=== PATIENT | female | born 1935 | race Caucasian/White ===

== ENCOUNTER 2021-03-04 08:14 | Inpatient (IN) | payer OTHER ==
[~2021-03-04] VITALS: Ht 165.1 cm; Wt 64.0 kg
--- NOTE | ~2021-03-04 | EMS ---
[place] [address] EMS Patient Care Report Name: KEN SANCHEZ Room #: PRE M.RMelinda#: [id number] Admission: Attend Phys: Discharge: Date of : 36 Report #: [id number] THIS REPORT FOR: //name// Report Transmitted: 03/04/2021 08:05 EMS Care Summary [place], [place]/[facility] Incident [id number] @ 03/04/2021 07:39 Incident Location [address] [place] [address] Patient KEN SANCHEZ Female, 85 Years 1935 Patient Address [address] [place] [address] Patient History Hypertension (HTN),Insomnia, Patient Allergies No known allergies, Chief Complaint fall/weakness Disposition Transported No Lights/[place] Dispatch Reason Falls Transported To [facility] Narrative daughter arrived this AM to find her mother on the bathroom floor. she last saw her mother yesterday @noon. she states pt is more confused than normal today. believed to be no LOC. pt urine soaked so think she may have been on floor overnight. pt denies inj from fall. she [place] [address] EMS Patient Care Report Name: KEN SANCHEZ Room #: PRE Wayne.#: [id number] Admission: Attend Phys: Discharge: Date of : 36 Report #: [id number] increasing weakness in lower ext. she agrees to eval at [facility]. pt helped to standing position and to stairchair. pt to cot, VS, transport w/ change. pt talkative enroute, able to carry on conversation about relatively current events. Initial Vitals @08:02P: 81,R: 20,BP: 151/71,Pain: 0/10,GCS: 14,Glucose: 100,SpO2: 91,Revised Trauma: 12, Assessments @07:50MENTAL:Confused,SKIN:No Abnormalities,HEENT:Head/Face: No Abnormalities,LUNG SOUNDS:ABDOMEN:PELVIS//GI:EXTREMITIES:Right Leg: Other,Left Leg: Other,PULSE:NEURO:Other, Impression Injury Procedures @07:50ALS AssessmentResponse: Unchanged@07:59StretcherResponse: Unchanged@07:55StairchairResponse: Unchanged@08:00Oxygen FlowRate: 4 Device: Nasal Cannula (NC) Response: Improved Timeline 07:37,Call Received 07:37,Dispatch Notified 07:39,Dispatched 07:41,En Route 07:46,On Scene 07:50,At Patient 07:50,ALS Assessment,Response: Unchanged 07:55,Stairchair,Response: Unchanged 07:59,Stretcher,Response: Unchanged 08:00,Oxygen FlowRate: 4 Device: Nasal Cannula (NC) Response: Improved 08:02,BP: 151/71 M,PULSE: 81,RR: 20 R,SPO2: 91 Ox,ETCO2: ,B,PAIN: 0,GCS: 14, 08:06,Depart Scene 08:11,At Destination 08:33,Call Closed Disclaimer v1.1 Copyright 2020 [employer] This EMS Care Summary contains data elements from the applicable legal record (which may be displayed differently). It is designed to provide pertinent information for the following purposes: continuity of care, clinical quality, and state data reporting. The complete legal record is available to ED staff and administrators of the receiving hospital in [employer] Patient Tracker. All data [address] [address] EMS Patient Care Report Name: KEN SANCHEZ Room #: PRE M.R.#: [id number] Admission: Attend Phys: Discharge: Date of : 36 Report #: [id number] is provided "as is."
[2021-03-04 08:15] VITALS: BP 166/89
[2021-03-04 08:53] LABS: URINE BILIRUBIN NEGATIVE (Negative); URINE BLOOD 1+ (Negative); URINE CLARITY CLEAR; URINE COLOR YELLOW; URINE GLUCOSE-RANDOM* NEGATIVE (Negative); URINE KETONES TRACE (Negative); URINE LEUKOCYTES-REFLEX NEGATIVE (Negative); URINE NITRITE-REFLEX NEGATIVE (Negative); URINE PROTEIN (DIPSTICK) 1+ (Negative); URINE SPECIFIC GRAVITY >= 1.030 (1.005-1.035); URINE UROBILINOGEN 0.2 E.U./dl (0.2-1.0)
[2021-03-04 09:05] LABS: SQUAMOUS >10 Many /LPF (0-3)
[2021-03-04 09:06] LABS: AMORPHOUS URATES Few /LPF (None Seen); BACTERIA-REFLEX 1-9 Few /HPF (None Seen); CASTS None Seen /LPF (None Seen); URINE RBC 1-2 Rare /HPF (NONE SEEN); URINE WBC-REFLEX 0-5 Rare /HPF (0-5)
[2021-03-04 09:53] LABS: ABSOLUTE NEUTROPHILS 8.7 thou/uL (1.4-8.2); BASOPHILS 0.3 % (0.0-2.0); EOSINOPHILS 0.4 % (0.0-3.0); HEMOGLOBIN 16.5 gm/dL (12.0-15.0); LYMPHOCYTES 6.2 % (24.0-44.0); MCH 31.5 pg (26.0-34.0); MCHC 34.4 g/dL (28.0-37.0); MCV 91.5 fL (80.0-100.0); MONOCYTES 6.3 % (1.0-8.0); PLATELET COUNT 191 thou/uL (150-400); POLYS 86.8 % (36.0-66.0); RBC 5.25 mil/uL (4.20-5.00); RDW 13.4 % (10.5-14.5)
--- NOTE | 2021-03-04 09:59 | EKG ---
[address] [place] [address] ELECTROCARDIOGRAM REPORT Name: KEN SANCHEZ Room #: PRE [facility]#: [id number] Admission: Attend Phys: Discharge: Date of : 37 Report #: [id number] [facility] ED Test Date: 2021-03-04 Test Time: 08:25:01 Pat Name: KEN SANCHEZ Department: Room: Gender: F Business Solutions Architect: MURPHY : 1935 Requested By: Bong Sage Order Number: [id number] MD: Maksim Menjivar Measurements Intervals [place] Rate: 77 P: MN: QRS: 49 QRSD: 80 T: 173 QT: 401 QTc: 454 Interpretive Statements NSR, artifact Nonspecific repol abnormality, diffuse leads Artifact in lead(s) I,aVR,aVL,aVF,V1,V2 and baseline wander in lead(s) V1,V2 No previous ECG available for comparison Electronically Signed On 03-04-2021 9:59:28 CDT by Maksim Menjivar [email or web address] <ELECTRONICALLY SIGNED> By: Maksim Menjivar MD, [facility] 03/04/21 0959 4 4 Maksim Menjivar MD, FAC /EPI
[2021-03-04] MEDS ORDERED: TEMAZEPAM30 MG PO (10:00)
[2021-03-04] MEDS ORDERED: LIPITOR40 MG PO (10:01)
[2021-03-04] MEDS ORDERED: KLOR-CON M2020 MEQ PO (10:01)
[2021-03-04] MEDS ORDERED: COZAAR 25 MG TA25 M2 PO (10:01)
[2021-03-04] MEDS ORDERED: HYDROCHLOROTH12.5 M2 PO (10:01)
[2021-03-04] MEDS ORDERED: SERTRALINE HCL100 MG PO (10:01)
[2021-03-04 10:02] LABS: CALCIUM 9.2 mg/dL (8.5-10.1); POTASSIUM 3.8 mmol/L (3.5-5.1)
[2021-03-04 10:23] LABS: ALBUMIN 3.7 g/dL (3.4-5.0); TROPONIN-I 0.11 ng/mL (<0.06)
[2021-03-04 12:57] LABS: FOLIC ACID 15.1 ng/mL (8.6-58.9)
[2021-03-04 15:01] VITALS: BP 127/40
[2021-03-04 15:07] VITALS: BP 110/43
[2021-03-04 15:38] VITALS: BP 119/51
--- NOTE | 2021-03-04 16:09 | NUR ---
Pt expressed desire to have daughter and son as decision makers if she becomes incompetent, and wishes to be a DNR during her stay. Daughter at bedside affirms these have been her wishes and she agrees. Will page hospitalist.
[2021-03-04 20:42] VITALS: BP 113/57
[2021-03-04 23:22] VITALS: BP 144/49
[2021-03-05 04:38] LABS: BASOPHILS 0.3 % (0.0-2.0); EOSINOPHILS 1.7 % (0.0-3.0); LYMPHOCYTES 15.2 % (24.0-44.0); MCH 31.1 pg (26.0-34.0); MCHC 33.5 g/dL (28.0-37.0); MCV 92.8 fL (80.0-100.0); MONOCYTES 9.9 % (1.0-8.0); PLATELET COUNT 162 thou/uL (150-400); POLYS 72.9 % (36.0-66.0); RBC 4.31 mil/uL (4.20-5.00); RDW 13.8 % (10.5-14.5); WBC 6.8 thou/uL (4.0-11.0)
[2021-03-05 04:39] LABS: HEMOGLOBIN 13.4 gm/dL (12.0-15.0)
[2021-03-05 04:41] VITALS: BP 119/85
[2021-03-05 05:01] LABS: ANION GAP 11 mmol/L (7-16); BUN 24 mg/dL (7-18); CALCIUM 7.9 mg/dL (8.5-10.1); CHLORIDE 108 mmol/L (98-107); CHOLESTEROL 224 mg/dL (<200); CO2 25 mmol/L (21-32); CREATININE 0.9 mg/dL (0.6-1.0); GLUCOSE 107 mg/dL (74-106); HDL CHOLESTEROL 47 mg/dL (>40); LDL CHOLESTEROL 153 mg/dL (<100); MAGNESIUM 1.9 mg/dL (1.8-2.4); POTASSIUM 3.1 mmol/L (3.5-5.1); SODIUM 144 mmol/L (136-145); TC:HDL 4.8 Ratio (Not establshd); TRIGLYCERIDE 120 mg/dL (<150); VLDL 24 mg/dL (<40)
[2021-03-05 05:04] LABS: SERUM ASSESSMENT Clear
--- NOTE | 2021-03-05 05:50 | NUR ---
ASSUMED CARE OF PATIENT AT 1900. PATIENT VERY CONFUSED, DIFFICULT TO REORIENT. DAUGHTER AT BEDSIDE AND SAID THIS WAS "FAIRLY NORMAL" BUT IS GETTING WORSE. PATIENT COULD NOT BE REDIRECTED EASILY. DENIES PAIN. POC GOALS ESTABLISHED.
[2021-03-05 08:04] VITALS: BP 158/67
--- NOTE | 2021-03-05 10:49 | 2DMMODE ---
[facility] [place] [address] 2 D/M-MODE ECHOCARDIOGRAM Name: KEN SANCHEZ Room #: 203-P ADM IN M.R.#: [id number] Admission: 03/04/21 Attend Phys: Greg Arevalo MD Discharge: Date of : 36 Report #: [id number] THIS REPORT FOR: cc: Rosalio Anderson MD, Christopher B. MD Park, Jin S. MD ~ APPROVED REPORT Study performed: 03/05/2021 08:26:11 EXAM: Comprehensive 2D, Doppler, and color-flow Echocardiogram Patient Location: Bedside Room #: 203 Status: on-call BSA: 1.84 HR: 67 bpm BP: 119/85 mmHg Rhythm: NSR Other Information Study Quality: Good Indications Elevated troponin. 2D Dimensions RVDd: 36.08 mm IVSd: 12.70 (7-11mm) LVOT Diam: 21.12 (18-24mm) LVDd: 49.31 mm PWd: 9.56 (7-11mm) Ascending Ao: 33.02 (22-36mm) LVDs: 30.20 (25-40mm) Left Atrium: 45.52 (27-40mm) Aortic Root: 30.26 mm Volumes Left Atrial Volume (Systole) Single Plane 4CH: 133.06 mL Single Plane 2CH: 89.29 mL LA ESV Index: 68.00 mL/m2 Aortic Valve AoV Peak Tommy.: 2.22 m/s AO Peak Gr.: 19.78 mmHg LVOT Max P.34 mmHg AO Mean Gr.: 10.36 mmHg AO V2 Mean: 1.53 m/s LVOT Max V: 1.26 m/s [facility] [place] [address] [place] [address] 2 D/M-MODE ECHOCARDIOGRAM Name: DANIELMATTDEANNA Room #: Formerly named [facility] IN ..#: [id number] Admission: 03/04/21 Attend Phys: Greg Arevalo, Discharge: Date of : 36 Report #: [id number] AO V2 VTI: 48.15 cm BETSY Vmax: 1.98 cm2 Mitral Valve E/A Ratio: 1.4 MV Decel. Time: 330.91 ms MV E Max Tommy.: 1.78 m/s MV A Tommy.: 1.29 m/s MV PHT: 95.97 ms IVRT: 59.98 ms Pulmonary Valve PV Peak Tommy.: 1.10 m/s PV Peak Gr.: 4.86 mmHg Tricuspid Valve TR Peak Tommy.: 2.73 m/s RAP Estimate: 5.00 mmHg TR Peak Gr.: 30.00 mmHg PA Pressure: 35.00 mmHg Left Ventricle The left ventricle is normal size. There is normal LV segmental wall motion. Mild basal septal hypertrophy is present. Left ventricular systolic function is normal. LVEF is 65%. Moderate diastolic dysfunction is present. Right Ventricle The right ventricle is normal size. The right ventricular systolic function is normal. Atria Left atrium is severely dilated. The right atrium size is normal. Aortic Valve Aortic valve is calcified; trileaflet. No aortic regurgitation is present. There is no aortic valvular stenosis. Mitral Valve Moderate to severe mitral annular calcification. Moderate mitral regurgitation. No evidence of mitral valve stenosis. Tricuspid Valve The tricuspid valve is normal in structure. Mild tricuspid regurgitation. Estimated PAP is 35mmHg. Pulmonic Valve [facility] [address] [place] [address] 2 D/M-MODE ECHOCARDIOGRAM Name: KEN SANCHEZ Room #: 203-P [facility] IN M.R.#: [id number] Admission: 03/04/21 Attend Phys: Greg Arevalo, Discharge: Date of : 36 Report #: [id number] The pulmonary valve is normal in structure. Trace pulmonic regurgitation. Great Vessels The aortic root is normal in size. The ascending aorta is normal in size. IVC is normal in size and collapses >50% with inspiration. Pericardium There is no pericardial effusion. <Conclusion> The left ventricle is normal size. Left ventricular systolic function is normal. Moderate diastolic dysfunction is present. The right ventricle is normal size. Left atrium is severely dilated. Aortic valve is calcified; trileaflet. Moderate to severe mitral annular calcification. Moderate mitral regurgitation. Mild tricuspid regurgitation. Estimated PAP is 35mmHg. <ELECTRONICALLY SIGNED> By: Ajay Juares MD 03/05/21 1048 1048 Ajay Juares MD /INF
[2021-03-05 12:07] VITALS: BP 120/61
--- NOTE | 2021-03-05 12:07 | NUR ---
SW attempted to meet w/ pt several times on this day. Pt unavailable each attempt and there was no family present in room. SW will provide facesheet to weekday CM.
[2021-03-05 16:31] VITALS: BP 135/69
--- NOTE | 2021-03-05 17:39 | NUR ---
0715 HRS - PT IN BED RESTING WITH EYES CLOSED 0815 HRS - PT [id number], SOMEWHAT CONFUSED AND UNABLE TO FOCUS ON CONVERSATION SUBJECT. RANDOM THINKING AND QUESTIONS 0932 HRS - ESCORTED TO CT 1030 HRS - PT FAMILY MEMBER VISITING AND AT BEDSIDE. INVOLVED WITH GOALS. 1105 HRS - ULTRASOUND AT BEDSIDE 1740 HRS - PT DAUGHTER AT BEDSIDE WHOLE SHIFT.
[2021-03-05 19:17] VITALS: BP 114/48
[2021-03-06 03:08] VITALS: BP 171/65
--- NOTE | 2021-03-06 03:34 | NUR ---
ASSUMED CARE OF PATIENT AT 1900. MUCH MORE ALERT AND COHERENT THIS SHIFT. DENIES PAIN. UP TO THE COMMODE WITH ASSIST X2. PATIENT VERY CONCERNED ABOUT STAYING AT THE HOSPITAL MUCH LONGER. STATES SHE DOES NOT DRINK MUCH WATER AT HOME BECAUSE IT IS DIFFICULT TO GET UP AND URINATE AT TIMES. WORKING TOWARDS POC GOALS.
[2021-03-06 07:31] VITALS: BP 175/68
[2021-03-06 09:57] LABS: HEMOGLOBIN 13.5 gm/dL (12.0-15.0); MCH 31.3 pg (26.0-34.0); MCHC 33.9 g/dL (28.0-37.0); MCV 92.4 fL (80.0-100.0); RBC 4.32 mil/uL (4.20-5.00); RDW 13.7 % (10.5-14.5); WBC 5.5 thou/uL (4.0-11.0)
[2021-03-06 10:39] LABS: CREATININE 0.8 mg/dL (0.6-1.0); MAGNESIUM 1.7 mg/dL (1.8-2.4)
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
[2021-03-06 11:28] VITALS: BP 145/72
[2021-03-06 16:17] VITALS: BP 160/76
--- NOTE | 2021-03-06 18:23 | NUR ---
PT ALERT TO SELF. VERY FORGETFUL. DENIED HAVING PAIN OR DISCOMFORT. VSS. NO CONCERNS AT THIS TIME.
[2021-03-06 20:00] VITALS: BP 150/67
[2021-03-07 03:15] LABS: HEMATOCRIT 39.9 % (37.0-47.0); HEMOGLOBIN 13.5 gm/dL (12.0-15.0); MCH 31.6 pg (26.0-34.0); MCHC 33.8 g/dL (28.0-37.0); MCV 93.5 fL (80.0-100.0); RBC 4.27 mil/uL (4.20-5.00); RDW 13.6 % (10.5-14.5); WBC 7.8 thou/uL (4.0-11.0)
[2021-03-07 03:45] LABS: CALCIUM 8.1 mg/dL (8.5-10.1); CREATININE 0.6 mg/dL (0.6-1.0); MAGNESIUM 1.8 mg/dL (1.8-2.4)
[2021-03-07 04:05] LABS: POTASSIUM 4.9 mmol/L (3.5-5.1)
[2021-03-07 05:00] VITALS: BP 162/91
[2021-03-07 07:10] VITALS: BP 118/96
--- NOTE | 2021-03-07 07:32 | NUR ---
Assummed care of this patient from the night nurse.
--- NOTE | 2021-03-07 10:34 | NUR ---
DR SHEN IN EARLIER TO DISCUSS NUCLEAR STRESS TEST FOR TOMORROW. PATIENT VERBLAIZED UNDERSTANDING AND DAVANTER IS AWARE OF THE POC.
[2021-03-07 11:10] VITALS: BP 145/63
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
[2021-03-07 15:59] VITALS: BP 126/47
--- NOTE | 2021-03-07 16:29 | NUR ---
HAND BOOKED FOLDER AND STITCHER SPOKE WITH PATIENT'S DAUGHTER TODAY REGARDING ACUTE REHAB VS SNF AND COST TO PATIENT. INSURANCE CONTACTED AND LIAISON WAS TOLD COST TO PATIENT WOULD BE A ONE TIME PAYMENT OF $350.00. DAUGHTER GIVEN INFORMATION AND WAS REQUESTED BY LIAISON TO CALL AND CONFIRM INFORMATION WITH THE INSURANCE COMPANY FOR HERSELF. DAUGHTER TO SPEAK WITH PATIENT'S SON TYE AND THEN REACH OUT TO LIAISON TOMORROW, 03/08, WITH DECISION ON D/C PLAN.
--- NOTE | 2021-03-07 17:21 | NUR ---
PATIENT IS PROGRESSING TOWARDS OUTCOME GOALS SHE IS ABLE TO WALK TO THE BATHROOM WITH MIN ASSISTANCE AND WALKER. REMAINS FORGETFUL AT TIMES. PLEASE REFER TO ASSESSMENT.
[2021-03-07 19:16] VITALS: BP 152/74
[2021-03-08 03:20] VITALS: BP 140/70
[2021-03-08 07:47] VITALS: BP 139/64
--- NOTE | 2021-03-08 08:39 | NUR ---
pt resting on and off thru the noc, forgetful and not able to use call light for assist frequently setting bed alarm off, occasionally needing reoriented to place and situation, no c/o pain, npo since mnoc for nuc stress test this am, hopes to move on in care, report given to next shift to con't with pt's ppoc.
[2021-03-08] MEDS ORDERED: VITAMIN D325 MC1 PO (12:36)
[2021-03-08] MEDS ORDERED: NORVASC5 MG PO (12:36)
--- NOTE | 2021-03-08 15:32 | NUR ---
ON-GOING ASSESSMENT: CM REVIEWED CHART AND SPOKE WITH PATIENT AT THE BEDSIDE. CM ALSO SPOKE WITH PATIENTS DAUGHTER NAYAN THIS AM WHO REPORTS SHE CALLED PATIENTS INSURANCE TO VERIFY HER BENEFITS AND HOW MUCH THEY MIGHT POSSIBLY OWE WITH HER GOING TO REHAB AND STATES SHE IS NOW AGREEABLE WITH THE PLAN AND OK FOR 5N TO SUBMIT INSURANCE AUTH. RACHELLE UPDATED 5N LIASON THIS AM TO UPDATE AND REQUEST TO SUBMIT FOR AUTH SHAHEED. AWAITING INSURANCE AUTH FOR 5N AT THIS TIME. PTS DAUGHTER ALSO HAS A SNF LIST FOR BACKUP TO REVIEW. RACHELLE WILL CONTINUE TO FOLLOW.
--- NOTE | 2021-03-08 18:14 | NUR ---
RECEIVED THE PATIENT ON BED, CONSCIOUS AND ORIENTED.ON ROOM AIR BREATHING SPONTANEOUSLY.NOT IN PAIN OR DISTRESS, WAS ON NPO FOPR STRESS TEST.STRESS TEST WAS DONE, RESUMED FEEDING AFTER AND MEDICATIONS WERE GIVEN AFTER.ALL NEEDS ATTENDED.
[2021-03-08 21:30] VITALS: BP 158/82
--- NOTE | 2021-03-09 06:11 | NUR ---
ASSESSMENTS CHARTED, MEDS CHARTED GIVEN. PATIENT CONFUSED, COMBATIVE AT START OF SHIFT, YELLING FOR THE POLICE, NOT LISTENING OR COMPREHENDING THAT SHE WAS IN THE HOSPITAL AND NOT IN HER HOUSE. HARD OF HEARING. CALLED HER DAUGHTER AND SHE TALKED TO HER MOM AND THAT CALMED HER MOM FOR A SHORT WHILE, BUT RESUMED WHEN THE CALL WAS OVER. RECEIVED ORDERS FROM JORGITO ARGUETA FINALLY SECURITY WAS ABLE TO LEAVE, PATIENT QUIT TRYING TO CLIMB OUT OF BED, AND EVENTUALLY FELL ASLEEP. IMPULSIVE WHEN SHE WOKE UP BUT DID LISTEN TO DIRECTIONS. FALL PRECAUTIONS IN PLACE DURING SHIFT. PLAN OF CARE IS TO TRANSFER TO REHAB FACILITY WHEN INSURANCE APPROVES.
[2021-03-09 06:33] VITALS: BP 166/79
[2021-03-09 07:40] VITALS: BP 150/57
[2021-03-09 12:24] VITALS: BP 113/50
--- NOTE | 2021-03-09 14:30 | NUR ---
ON-GOING ASSESSMENT: CM REACHED OUT TO PATIENTS DAUGHTER NAYAN BUT NOT ANSWER AND VM WAS LEFT TO NOTIFY HER THAT WE ARE STILL AWAITING DETERMINATION FOR INSURANCE AUTH FOR 5N AT THIS TIME. CM WILL CONTINUE TO FOLLOW.
[2021-03-09 15:42] VITALS: BP 107/45
--- NOTE | 2021-03-09 17:22 | NUR ---
ASSUMED CARE SHIFT CHANGE. VSS, DENIES PAIN. ASSESSMENTS CHARTED.FAMILY AT BEDSIDE. PT UP WITH WALKER YA WELL. PT CONFUSED, NOT COMBATIVE WITH STAFF. SEEN BY DR CAMPOVERDE FOR CONSULT. STILL WAITING ON AUTHORIZATION FOR 5NORTH, HOPEFUL FOR DC IN AM. DENIES NEEDS CURRENTLY, CONT TO MONITOR, WILL PASS ONTO NOC RN.
[2021-03-09 20:27] VITALS: BP 101/48
[2021-03-10] VITALS (8 sets, daily range): BP systolic 109–143; BP diastolic 44–100
--- NOTE | 2021-03-10 05:47 | NUR ---
Pt. rested quietly during the night when checked on during frequent rounds. She has been cooperative with cares. Alert with some forgetfulness. Up to the bathroom with gait belt and walker. She offers no c/o pain. Bed alarm is on.
[2021-03-10 09:37] LABS: URINE BILIRUBIN NEGATIVE (Negative); URINE BLOOD TRACE (Negative); URINE CLARITY CLEAR; URINE COLOR YELLOW; URINE GLUCOSE-RANDOM* NEGATIVE (Negative); URINE KETONES NEGATIVE (Negative); URINE LEUKOCYTES NEGATIVE (Negative); URINE NITRITE NEGATIVE (Negative); URINE PROTEIN (DIPSTICK) NEGATIVE (Negative); URINE SPECIFIC GRAVITY 1.025 (1.005-1.035); URINE UROBILINOGEN 0.2 E.U./dl (0.2-1.0)
--- NOTE | 2021-03-10 15:05 | NUR ---
ON-GOING ASSESSMENT: RACHELLE REVIEWED CHART AND SPOKE WITH Marin CASTILLO WHO REPORTS THAT INSURANCE AUTH IS STILL PENDING. SHE REPORTS SHE CONTACTED INSURANCE AND THE DIRECTOR OF INSTITUTIONAL GIVING IS TO REVIEW AND AWAITING A DECISION. RACHELLE UPDATED PATIENTS DAUGHTERS NAYAN WHO REPORTS SHE WILL ALSO CALL IN ATTEMPTS TO SPEED ALONG THE PROCESS. RACHELLE WILL CONTINUE TO FOLLOW.
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
--- NOTE | 2021-03-10 19:34 | NUR ---
PT CARE ASSUMED AT 0700. ASSESSMENTS CHARTED. MEDICATIONS CHARTED. RFA IV. TOILET, ASSIST X 1. URINALYSIS SENT. DIET: HEART HEALTHY. CAMPO.
[2021-03-11 03:52] VITALS: BP 132/44
--- NOTE | 2021-03-11 04:01 | NUR ---
SLEPT PART OF SHIFT. UP TO BATHROOM WITH WALKER, GAIT BELT AND STANDBY ASSIST. FORGETS TO CALL FOR ASSISTANCE, FALL PRECAUTIONS IN PLACE AND BED ALARM ON. REDIRECT NEEDED. WORKING ON GOALS AND PLAN OF CARE FOR NOC. POSSIBLE DISCHARGE TO SNF TODAY. CONTINUE TO ASSES CLOSELY.
[2021-03-11 07:41] VITALS: BP 134/52
[2021-03-11 08:50] VITALS: BP 134/52
[2021-03-11] MEDS ORDERED: VITAMIN B-1100 M2 PO (09:17)
[2021-03-11] MEDS ORDERED: RISPERIDONE 00.25 MG PO (09:17)
[2021-03-11] MEDS ORDERED: METOPROLOL SUCC50 MG PO (09:17)
--- NOTE | 2021-03-11 10:56 | NUR ---
on-going assessment: CM REVIEWED CHART AND SPOKE WITH ATTENDING WHO REPORTS PT CAN DISCHARGE TO SNF TODAY. CM NOTIFIED LIASON AT [facility]. CM ALSO SPOKE WITH [facility] WHO REPORTS PT IS APPROVED FOR SNF AUTH#[id number] AND THE SCALLOP DREDGER WILL BE XAVIER TINAJERO. CM NOTIFIED LIASON AT [facility] WHO REPORTS THEY CAN ACCEPT PT TODAY. CM NOTIFIED PTS DAUGHTER NAYAN WHO WAS COMING TO VISIT PATIENT. PT IS AGREEABLE WITH PLAN. [place] IS WANTING TO RESERVATIONS AND TICKETING AGENT PATIENT AT 1100. CM NOTIFIED BEDSIDE RN WELL PTS DAUGHTER. CHART COPY WAS ORDERED. CM FAXED DISCHARGE PAPERWORK TO FACILITY AND CONFIRMED THEY RECEIVED IT. PTS DAUGHTER STATING SHE ALSO LEFT PATIENTS SON KNOW. PT AND DAUGHTER REPORT NO FURTHER NEEDS FROM CM. BEDSIDE RN HAS THE NUMBER FOR REPORT AND NO FURTHER NEEDS AT THIS TIME.
--- NOTE | 2021-03-11 11:41 | NUR ---
TELEPHONE REPORT ATTEMPTED TO BE GIVEN MULTIPLE TIMES, NO RETURN CALL. PATIENT DC VIA WHEELCHAIR AT 1130 AM THIS SHIFT. NO CHANGES IN ASSESSMENTS. ALL BELONGINGS SENT WITH PATIENT. PATIENT AMBULATED TO WHEELCHAIR W/O COMPLICATIONS. TELEPHONE FINALLY GIVEN TO [place] THORNTON AT 1146 AM.
--- NOTE | 2021-03-28 08:38 | HC ---
[facility] [place] [address] CONSULTATION Name: KEN SANCHEZ Room #: 203-P [facility] IN M.R.#: [id number] Admission: 03/04/21 Attend Phys: Greg Arevalo MD Discharge: 03/11/21 Date of : 37 Report #: [id number] THIS REPORT FOR: cc: Rosalio Anderson MD, Christopher B. MD Smithson, David G. MD ~ DATE OF SERVICE: 03/07/2021 HISTORY OF PRESENT ILLNESS: The patient is an 85-year-old white female who was found down on the floor by her family. She was covered in urine. The patient had no recollection of the fall. She was noted to be significantly confused upon admission was noted to have rhabdomyolysis with marked elevation of her CPK at 2472. It was noted she had some increased confusion over the last couple of days prior and has had some gradual decline in her functional mobility. She had an elevated troponin, thought to be related to the rhabdomyolysis. Neurology saw her and documented cognitive impairment along with lumbar spinal stenosis, [id number]. They recommended an outpatient Neurology evaluation for the lumbar spinal stenosis. She has been seen by Geriatrics and the recommendation is for an acute inpatient rehabilitation stay to further maximize her functional independence prior to returning back to the home setting as discussed with them. Cardiology is involved and again they note that it may be a false positive in the setting of rhabdomyolysis. There is a note a plan for nuclear stress testing. She has been diagnosed with an acute encephalopathy. We are seeing her in rehabilitation medicine consultation. PAST MEDICAL HISTORY: Hypertension, elevated lipids and degenerative arthritis of her knees. MEDICATIONS: Please see the full medication listing. ALLERGIES: No known drug allergies. SOCIAL HISTORY: [facility]. 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 She does have a supportive family with a son and a daughter, both living in town both working in professional jobs. There is paid help on Wednesdays that assists her with shopping errands. Discussed with the daughter. She notes they are open to more assistance for the patient as warranted. REVIEW OF SYSTEMS: No current complaints of chest pain, shortness of breath or abdominal discomfort. PHYSICAL EXAMINATION: GENERAL: Pleasant 85-year-old white female, hard of hearing. No obvious distress. [facility] [address] [place] [address] CONSULTATION Name: KEN SANCHEZ Room #: 203-P [facility] IN M.R.#: [id number] Admission: 03/04/21 Attend Phys: Greg Arevalo MD Discharge: 03/11/21 Date of : 37 Report #: [id number] VITAL SIGNS: Last recorded temperature 98.6, pulse 85, respirations 20, and blood pressure 118/96. NEUROLOGIC: The patient is alert. She is talkative, follows basic 1-step commands. There is a latency to her responses. She tends to be rather tangential. She will follow basic 1-step commands. EOMs appeared to be full. She has functional range of motion of both upper extremities, strength is grade 4-/5. DTRs are trace to 1. Lower extremities, no focal calf swelling. Strength is probably a grade 3+ to 4-/5. She was max assist sit to stand. Gait was mod assist, x2 with a front wheeled walker 12 feet. In OT, she was min-to-mod assist sit to stand earlier today, min assist for a few steps with a front-wheeled walker. Lower extremity dressing is mod assist. She does have decreased safety awareness. On 03/04/2021, speech therapy noted severe cognition and memory deficits. Neurology followup; however, thought they were more in the mild range. ASSESSMENT: An 85-year-old female with the following problem list: 1. Acute encephalopathy. 2. Rhabdomyolysis from falling. 3. Elevated troponin. Cardiology evaluation is underway. 4. [id number] lumbar spinal stenosis per Neurology evaluation. This was noted per CT scan of the lumbar spine. Outpatient Neurology evaluation is recommended. 5. Hypertension. 6. Degenerative arthritis of her knees. PLAN: The patient is a candidate and I would recommend an acute in-hospital inpatient rehabilitation stay. She would benefit from a comprehensive inpatient rehabilitation program to maximize her functional independence. She definitely needs the tolerance criteria for an acute 5 North inpatient rehabilitation stay and has appropriate discharge goals back to the home setting. The plan will be to try to return back to the home setting with likely some increased assistance as determined with further evaluation and pending her progress in inpatient rehabilitation. This was discussed with the patient's daughter who is in full agreement as well as discussion with the hospitalist service physician and geriatrics. Insurance precertification will be obtained and goals to maximize this patient who has otherwise been living quite independently in the community and has a very supportive family. Thank you, for asking us to assist in this patient's care. We will continue to follow with you regarding this patient. <ELECTRONICALLY SIGNED> By: Bong Nickerson MD 03/28/21 [id number] Bong Nickerson MD /nt
== END 2021-03-11 11:00 | DRG 564 ==
LOC: ER 08:14 → EROBS 10:40 → 2N 10:40
PROVIDERS: Emergency Medicine; Nurse Practitioner; Psychiatry & Neurology Psychiatry; ADMIT Internal Medicine; ATTEND Internal Medicine
DX: T79.6XXA Traumatic ischemia of muscle, initial encounter (principal); G93.41 Metabolic encephalopathy; N17.9 Acute kidney failure, unspecified; R77.8 Other specified abnormalities of plasma proteins; I48.91 Unspecified atrial fibrillation; I10 Essential (primary) hypertension; E78.5 Hyperlipidemia, unspecified; M17.0 Bilateral primary osteoarthritis of knee; R25.1 Tremor, unspecified; Z66 Do not resuscitate; F03.90 Unspecified dementia, unspecified severity, without behavioral disturbance, psychotic disturbance, mood disturbance, and anxiety; Z60.2 Problems related to living alone; E87.6 Hypokalemia; M48.061 Spinal stenosis, lumbar region without neurogenic claudication; K59.00 Constipation, unspecified; E55.9 Vitamin D deficiency, unspecified; R53.81 Other malaise; R41.0 Disorientation, unspecified; Z79.82 Long term (current) use of aspirin; Z79.899 Other long term (current) drug therapy; Z20.822 Contact with and (suspected) exposure to COVID-19
CPT/HCPCS: 10081; 10797